=== PATIENT | female | born 1980 | race Two or more races ===

== ENCOUNTER 2024-06-04 17:13 | Emergency (ER) | payer MEDICAID, OTHER ==
[~2024-06-04] VITALS: Ht 154.9 cm; Wt 82.0 kg
[2024-06-04 17:21] VITALS: BP 133/60; RESP 18; O2SAT 97
[2024-06-04 17:32] VITALS: PULSE 79
--- NOTE | 2024-06-04 17:47 | ED.PDOC ---
HPI (NEURO) HPI Comments 44Y F with PMHx brain tumor s/p craniotomy presents to ED via EMS for chief complaint syncope. Pt states she had the craniotomy procedure performed at [facility] one week ago and today experienced a syncopal episode during a hot shower. Upon EMS arrival, EMS witnessed a second syncopal episode while pt began to stand up. Per EMS, second syncopal episode lasted a few seconds. Pt denies headache, weakness, vision changes, dizziness, chest pain, and SOB. Pt has della intact on rt parietal area of head. LMP 06/01/2024. Chief Complaint: Syncope Time Seen by MD: 17:20 Primary Care Provider: Marciano Ahn Notes: Medications, Allergies Information Source: Patient, Emergency Med Personnel Mode of Arrival: EMS Brought in by: EMS Severity: Moderate Dizziness/Weakness Severity: Unable to do activities Headache Severity: None Timing: Minutes Duration: Minutes Prehospital treatment: None Onset: At rest Circumstances: Spontaneous Symptoms: Syncope After: Normal Mentation History of: Other Modifying factors: Nothing Associated Signs and Symptoms: None Past Medical History Past Medical History (Other): brain tumor Surgical History (Other): craniotomy 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 History Family History Family History: Unknown Social History Smoker: Non-Smoker Alcohol: Denies ETOH Use Drugs: Denies Drug Use Lives In: Home Constitutional: denies: chills, diaphoresis, fatigue, fever, malaise, sweats, weakness, others EENTM: denies: blurred vision, double vision, ear bleeding, ear discharge, ear drainage, ear pain, ear ringing, eye pain, eye redness, hearing loss, mouth pain, mouth swelling, nasal discharge, nose bleeding, nose congestion, nose pain, photophobia, tearing, throat pain, throat swelling, voice changes, others Respiratory: denies: cough, hemoptysis, orthopnea, SOB at rest, shortness of breath, SOB with excertion, stridor, wheezing, others Cardiovascular: denies: chest pain, dizzy spells, diaphoresis, Dyspnea on exertion, edema, irregular heart beat, left arm pain, lightheadedness, palpitations, PND, syncope, others Gastrointestinal: denies: abdomen distended, abdominal pain, blood streaked bowels, constipated, diarrhea, dysphagia, difficulty swallowing, hematemesis, melena, nausea, poor appetite, poor fluid intake, rectal bleeding, rectal pain, vomiting, others Genitourinary: denies: abnormal vagina bleeding, burning, dyspareunia, dysuria, flank pain, frequency, hematuria, incontinence, pain, , vagina discharge, urgency, others Neurological: reports: fainting; denies: dizziness, headache, left sided numbness, left sided weakness, numbness, paresthesia, pre-existing deficit, right sided numbness, right sided weakness, seizure, speech problems, tingling, tremors, weakness, others Musculoskeletal: denies: back pain, gout, joint pain, joint swelling, muscle pain, muscle stiffness, neck pain, others Integumetry: denies: bruises, change in color, change in hair/nails, dryness, laceration, lesions, lumps, rash, wounds, others Allergic/Immunocompromised: denies: Difficulty Healing, Frequent Infections, Hives, Itching, others Hematologic/Lymphatic: denies: anemia, blood clots, easy bleeding, easy bruising, swollen glands, others Endocrine: denies: excessive hunger, excessive sweating, excessive thirst, excessive urination, flushing, intolerance to cold, intolerance to heat, unexplained weight gain, unexplained weight loss, others Psychiatric: denies: anxiety, bipolar disorder, depression, hopeless, panic disorder, schizophrenia, sleepless, suicidal, others All Other Systems: Reviewed and Negative Physical Exam General Appearance: No Apparent Distress, Normal HEENT: Normal ENT Inspection, Pharynx Normal, TMs Normal Neck: Full Range of Motion, Non-Tender, Normal, Normal Inspection Respiratory: Chest Non-Tender, Lungs Clear, No Accessory Muscle Use, No Respiratory Distress, Normal Breath Sounds Cardiovascular: No Edema, No JVD, No Murmur, No Gallop, Normal Peripheral Pulses, Regular Rate/Rhythm Breast Exam: Deferred Gastrointestinal: No Organomegaly, Non Tender, No Pulsatile Mass, Normal Bowel Sounds, Soft Genitalia: Deferred Pelvic: Deferred Rectal: Deferred Extremities: No calf tenderness, Normal capillary refill, Normal inspection, Normal range of motion, Non-tender, No pedal edema Musculoskeletal : Apperance: Normal Neurologic: Alert, web coordinator II-XII nml as Tested, No Motor Deficits, Normal Affect, Normal Mood, No Sensory Deficits Cerebellar Function: Normal Reflexes: Normal Skin: Dry, Normal Color, Warm Lymphatic: No Adenopathy Was a procedure done? Was a procedure done?: No Differential Diagnosis (SZ) Seizure: Hyperventilation, Closed Head Injury, CVA/TIA, Hypocalcemia, Hypoglycemia, Hyponatremia, Hypoxemia, Mass Lesion, Syncope CVA: CVA, Electrolyte Imbalance, Hypoglycemia, Hypoxemia, Mass Lesion, SAH, TIA General Weakness: CVA, Dehydration, Dysrhythmia, Electrolyte imbalance, Hypoglycemia, Hypotension, Hypovolemia, TIA, VBI Headache: Closed Head Injury, CVA, Epidural Hemorrhage, Intracerebral Hemorrhage, Subarachnoid Hemorrhage, Subdural Hemorrhage, Mass Lesion X-Ray, Labs, Meds, VS Vital Signs Date Time Temp Pulse Resp B/P (MAP) Pulse Ox O2 Delivery O2 Flow Rate FiO2 06/04/24 17:32 79 06/04/24 17:21 99.0 82 18 133/60 (84) 97 Time of 1ST Reevaluation: 17:50 Reevaluation 1ST: Unchanged Time of 2ND Reevaluation: 18:01 Reevaluation 2ND: Resolved Patient Education/Counseling: Diagnosis, Treatment, Prognosis, Need For Follow Up Family Education/Counseling: No Family Present Additional Information The following tests were ordered by me: EKG x2, CBC, BMP, Troponin x2, beta hcg quant, CXR, head CT WO contrast Additional Information was gathered from interviewing the following independent historians: EMS I pt declined ct and wants to AMA, understanding the risks of dying and severe di sability if a bleed is not detected and treated Departure 1 Departure Time of Disposition: 18:04 Impression: Primary Impression: Syncope Disposition: 07 LEFT AGAINST MEDICAL ADVICE Condition: Other (unknown) Critical Care Note Critical Care Time?: Yes (45 min-critical care time only) Critical care comment: due to concerns for patient's condition deteriorating, the care required my highest level of attention and readiness to intervene. i reviewed any external notes, communicatd with medical personnel, assessed the pt, ordered the proper tests and treatments, and reassessed for response, formulated a plan of care. the critical care time excludes any procedures Stability Stability form required: No Heart Score Heart Score: Heart Score Response (Comments) Value History N/A 0 EKG N/A 0 Age N/A 0 Risk Factors N/A 0 Troponin N/A 0 Total 0 I personally scribed for TRUDY PRO MD ([facility]) on 06/04/24 at 17:47. Electronically submitted by Tanisha Fulton ([facility]). I personally scribed for TRUDY PRO MD ([facility]) on 06/04/24 at 17:49. Electronically submitted by Tanisha Fulton ([facility]). I personally scribed for TRUDY PRO MD ([facility]) on 06/04/24 at 17:50. Electronically submitted by Tanisha Fulton ([facility]). TRUDY PRO MD Jun 04, 2024 17:47
--- NOTE | 2024-06-04 17:49 | ECG ---
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
== END 2024-06-04 18:08 | disposition left against medical advice (07) ==
LOC: ER 17:13 → EDBD 17:13 → ER 18:08
DX: R55 Syncope and collapse (principal); Z98.890 Other specified postprocedural states
CPT/HCPCS: 93005